=== PATIENT | female | born 1975 | race Caucasian/White ===

== ENCOUNTER 2018-10-24 16:29 | Outpatient (CLI) | payer MEDICAID ==
--- NOTE | 2018-10-24 17:09 | Non Stress Test Report ---
Non Stress Test Datetime Report Generated by CPN: 10/24/2018 17:09 DEMOGRAPHIC EGA NST: 35.3 INDICATION Indication for Study: Ordered by Provider; Other Indication for Study (NST) Other: LC MONITORING Monitor Explained: Monitor Explained; Test Explained; Patient Verbalized Understanding Time on Monitor: 10/24/2018 16:22 Time off Monitor: 10/24/2018 16:51 NST Duration: 29 NST INTERVENTIONS Physician Notified NST: C Walton CNM BABY A: [id number] BABY A Movement : Present Contraction Frequency : x1 FHR Baseline : 135 Accelerations : 15X15 Decelerations : None Variability : Moderate 6-25bpm NST Review: Meets Criteria for Reactive NST NST Review and Verified By : Anna Camp RNC NST Results: Reactive NST REPORT Report Trigger: Send Report
== END 2018-10-24 16:58 | disposition home or self-care (01) ==
LOC: LC 16:29
PROVIDERS: ATTEND Obstetrics & Gynecology
PROC: 4A1HXCZ Monitoring of Products of Conception, Cardiac Rate, External Approach (ICD-10-PCS; principal; 2018-10-24)
DX: Z34.93 Encounter for supervision of normal pregnancy, unspecified, third trimester (principal)
CPT/HCPCS: 59025

== ENCOUNTER 2018-11-17 11:25 | Outpatient (CLI) | payer MEDICAID | END 2018-11-17 12:04 | disposition home or self-care (01) | LOC: LC 11:25 | PROVIDERS: ATTEND Obstetrics & Gynecology Gynecology | DX: Z34.93 Encounter for supervision of normal pregnancy, unspecified, third trimester (principal) | CPT/HCPCS: 59025 ==

== ENCOUNTER 2018-11-18 05:09 | Inpatient (IN) | payer MEDICAID ==
[2018-11-17 11:18] LABS: APPEARANCE,URINE CLEAR; BILIRUBIN,URINE NEGATIVE (NEGATIVE); COLOR,URINE YELLOW; GLUCOSE, URINE NEGATIVE (NEGATIVE); KETONES,URINE NEGATIVE (NEGATIVE); LEUKOCYTE ESTERASE,URINE NEGATIVE (NEGATIVE); NITRITE,URINE NEGATIVE (NEGATIVE); PROTEIN,URINE NEGATIVE (NEGATIVE); URINE SPECIFIC GRAVITY 1.013; UROBILINOGEN,URINE NEGATIVE mg/dL (<2.0)
[2018-11-17 11:30] LABS: URINE AMPHETAMINES SCREEN NEGATIVE; URINE BARBITURATES SCREEN NEGATIVE; URINE BENZODIAZEPINES SCREEN NEGATIVE; URINE COCAINE SCREEN NEGATIVE; URINE MARIJUANA (THC) SCREEN NEGATIVE; URINE METHADONE SCREEN NEGATIVE; URINE PHENCYCLIDINE SCREEN NEGATIVE
[2018-11-17 11:57] LABS: ABSOLUTE EOSINOPHILS # (AUTO) 0.3 10^3/uL (0.0-0.6); ABSOLUTE LYMPHOCYTES (AUTO) 2.9 10^3/uL (0.5-4.7); ABSOLUTE MONOCYTES (AUTO) 1.1 10^3/uL (0.1-1.4); ABSOLUTE NEUT (AUTO) 7.7 10^3/uL (1.7-8.2); BASOPHILS % (AUTO) 0.3 % (0-2); EOSINOPHILS % (AUTO) 2.7 % (0-6); HEMATOCRIT 37.4 % (36.0-47.0); LYMPHOCYTES % (AUTO) 24.3 % (13-45); MEAN CORPUSCULAR HEMOGLOBIN 33.8 pg (27.0-33.4); MEAN CORPUSCULAR HGB CONC 34.7 g/dL (32.0-36.0); MEAN CORPUSCULAR VOLUME 97 fl (80-97); MONOCYTES % (AUTO) 8.8 % (3-13); PLATELET COUNT 333 10^3/uL (150-450); RED BLOOD COUNT 3.84 10^6/uL (3.72-5.28); RED CELL DISTRIBUTION WIDTH 13.2 % (11.5-14.0); SEGMENTED NEUTROPHILS % (AUTO) 63.9 % (42-78); TOTAL CELLS COUNTED % (AUTO) 100 %
[~2018-11-18 05:09] MED LIST: CEFAZOLIN SODIUM 2 GM in DEXTROSE 5%-WATER 100 ML IV PRN
[2018-11-18] MEDS ORDERED: RINGERS SOLUTION,LACTATED 1,000 ML IV ONE (06:15)
[2018-11-18] MEDS ORDERED: CEFAZOLIN 1 GM/D5W RTU 2 GM/100 ML RTUPB IV ONE (06:17)
[2018-11-18] MEDS ORDERED: OXYTOCIN 10 UNIT/ML VIAL ONE (06:23)
[2018-11-18] MEDS ORDERED: MIDAZOLAM 2 MG/2 ML INJ ONE (06:24)
[2018-11-18] MEDS ORDERED: EPHEDRINE SULFATE INJ 50 MG/1 ML AMPULE ONE (06:24)
[2018-11-18] MEDS ORDERED: FENTANYL CITRATE INJ/PF 100 MCG/2 ML AMPUL ONE (06:24)
[2018-11-18] MEDS ORDERED: PROPOFOL INJ 200 MG/20 ML VIAL IV ONE (06:24)
[2018-11-18] MEDS: LACTATED RINGERS 1000 ML IV PRN ×2 (06:42→16:31)
[2018-11-18] MEDS ORDERED: OXYTOCIN/NORMAL SALINE 20 UNIT/1,000 ML RTUINJ ONE (06:56)
[2018-11-18] MEDS ORDERED: ONDANSETRON HCL INJ/PF 4 MG/2 ML SDV ONE (07:09)
[2018-11-18] MEDS ORDERED: PROMETHAZINE HCL INJ 25 MG/1 ML VIAL IV PRN ×3 (07:14→09:15)
[2018-11-18] MEDS ORDERED: DIPHENHYDRAMINE HCL 50 MG/ML VIAL IV PRN (07:14)
[2018-11-18] MEDS ORDERED: FENTANYL CITRATE INJ/PF 100 MCG/2 ML AMPUL IV PRN ×3 (07:14)
[2018-11-18] MEDS ORDERED: ONDANSETRON HCL INJ/PF 4 MG/2 ML SDV IV PRN (07:14)
--- NOTE | 2018-11-18 09:08 | PDOC DELIVERY SUMMARY ---
Delivery Summary - Maternal Hx : VIII Hx Para: II Hx # Term Pregnancies: 2 Hx Total # of Abortions (Sponateous & Elective): 5 Number of Living Children: 2 ALDO: 11/25/18 Gestational Age: 39.0 Risk Factors: Previous Ruptured Membranes: AROM Time of Rupture: 08:16 Fluids: Clear - Delivery Labor: Not In Labor Presentation: Vertex Heart Rate Monitoring: Done Pre-Operatively Uterine Contraction Monitoring: External Support Person Present: Yes Location: OR : Scheduled Placenta: Within Normal Limits Number of Vessels (Cord): 3 Nuchal Cord: Yes Delivery of Placenta Date: 11/18/18 Delivery of Placenta Time: 08:18 Estimated Blood Loss: 800 ml - Medications Type of Anesthesia:: Spinal - Infant Assess and Care Baby 1 Male Delivery of Infant Date: 11/18/18 Delivery of Time: 08:17 at 1 minute: 8 at 5 minutes: 9 Preprinted Number On Band: [id number] Skin to Skin: No Skin to Skin (Mins): 0 To Nursery At: 08:28 Mode of Transport: Bassinet - Delivery Personnel Nursery RN: BRENDA BILLINGS [facility] RN: LESLIE PIMENTEL RN: BRUNA SHER MD: JULIÁN RECINOS
[2018-11-18] MEDS ORDERED: MORPHINE SULFATE 10 MG/ML INJ ONE (09:12)
[2018-11-18] MEDS ORDERED: MEPERIDINE HCL/PF INJ 25 MG/1 ML DISP.SYRIN ONE (09:12)
[2018-11-18] MEDS ORDERED: SIMETHICONE 80 MG TAB.CHEW PO PRN (09:15)
[2018-11-18] MEDS ORDERED: OXYTOCIN/NORMAL SALINE 20 UNIT/1,000 ML RTUINJ IV PRN (09:15)
[2018-11-18] MEDS ORDERED: ACETAMINOPHEN 1,000 MG/100 ML RTUPB IV PRN (09:15)
[2018-11-18] MEDS ORDERED: ACETAMINOPHEN 325 MG TABLET PO PRN (09:15)
[2018-11-18] MEDS ORDERED: RINGERS SOLUTION,LACTATED 1,000 ML IV PRN (09:15)
[2018-11-18] MEDS ORDERED: DIPH/PERTUSS(ACELL)/TETANUS VAC/PF 0.5 ML SYR (>=10YO) IM PRN (09:15)
[2018-11-18] MEDS ORDERED: OXYCODONE-ACETAMINOPHEN 5-325 MG TABLET PO PRN (09:15)
--- NOTE | 2018-11-18 09:15 | Operative Report ---
Operative Report DATE OF SURGERY: 11/18/18 PREOPERATIVE DIAGNOSIS: 1. Intrauterine at 39-0/7 weeks. 2. Previo us section x2. 3. GBS negative. 4. Asthma. 5. Rh-. 6. Rubella immune POSTOPERATIVE DIAGNOSIS: Same OPERATION: Repeat low transverse section SURGEON: JULIÁN FABIAN ANESTHESIA: Spinal TISSUE REMOVED OR ALTERED: Placenta COMPLICATIONS: None ESTIMATED BLOOD LOSS: 800 ml INTRAOPERATIVE FINDINGS: Male fetus with a cephalic plus nuchal cord x1 presentation at 0817; Apgars 8 at 1, 9 at 5; normal uterus, bilateral tubes and ovaries; large left ovarian cyst resolving PROCEDURE: The patient was taken to the operating room where spinal anesthesia was obtained and found to be adequate. She was then prepped and draped in the normal sterile fashion and placed in the dorsal supine position with a leftward tilt. A Pfannenstiel skin incision was then made and carried through to the underlying layers of the fascia with the scalpel. The fascia was incised in the midline and the incision extended laterally with the Tillman scissors. The superior aspect of the fascial incision was then grasped with Valeria clamps elevated and the underlying rectus muscles dissected off both bluntly and sharply. Attention was then turned to the inferior aspect of the fascial incision which in a similar fashion was grasped, tented up with Valeria clamps, and the rectus muscles dissected off both bluntly and sharply. The rectus muscles were then in the midline and the peritoneum was identified and entered both sharply and bluntly. The peritoneal incision was then extended superiorly and inferiorly with good visualization of the bladder. The bladder blade was inserted and the vesicouterine peritoneum identified grasped with Green[place]ic pickups and entered sharply with the Metzenbaum scissors. This incision was then extended laterally with the Metzenbaum scissors and a bladder flap created digitally. The bladder blade was then reinserted and the lower uterine segment incised in a transverse fashion with the scalpel. The uterine incision was then extended bluntly and with the bandage scissors. The bladder blade was removed and the infant's head was delivered from cephalic presentation atraumatically. The cord doubly clamped and cut. The was handed off to waiting city bailiff. The placenta was then delivered manually and the uterus exteriorized and cleared of all clots and debris. The uterine incision was then repaired with 0 Vicryl in a running locked fashion. 0-Chromic was used to obtain hemostasis via imbrication of the initial layer. The left ovary was inspected to see if the large ovarian cyst was still present. The ovarian cyst was deflated and no intervention was needed. The abdomen was then copiously irrigated with warm normal saline. The uterus was returned to the patient's abdomen and Interceed was placed overlying the uterine incision, as well as a piece placed vertically on the anterior surface of the uterus, to prevent adhesions. The gutters were cleared of all clots and debris. All operative sites were noted to be hemostatic. The fascia was reapproximated with 0 Vicryl in a running fashion from each lateral edge to the midline. The subcutaneous fat layer was then closed in an interrupted fashion with 3-0 vicryl. The skin was closed with 4-0 Monocryl in a running, subcuticular fashion. The patient tolerated the procedure well. Sponge, lap, needle and instrument counts are correct x 2. 2 g of Ancef were given prior to skin incision. The patient was taken to the recovery area awake and in stable condition.
[2018-11-18] MEDS: MEPERIDINE HCL/PF INJ 25 MG/1 ML DISP.SYRIN IV PRN ×2 (09:18→09:38)
[2018-11-18] MEDS: MORPHINE SULFATE 10 MG/ML INJ IV PRN ×2 (09:25→09:37)
[2018-11-18] MEDS ORDERED: ACETAMINOPHEN 1,000 MG/100 ML RTUPB IV ONE (10:12)
[2018-11-18] MEDS ORDERED: KETOROLAC TROMETHAMINE INJ/PF 30 MG/1 ML SDV ONE (10:12)
[2018-11-18] MEDS ORDERED: HYDROMORPHONE HCL INJ/PF 2 MG/ML AMPULE ONE (10:12)
[2018-11-18] MEDS: KETOROLAC TROMETHAMINE INJ/PF 30 MG/1 ML SDV IV SCH ×2 (10:18→18:16)
[2018-11-18] MEDS: HYDROMORPHONE HCL INJ/PF 2 MG/ML AMPULE IV PRN ×2 (10:24→12:50)
[2018-11-18] MEDS: DOCUSATE SODIUM 100 MG CAPSULE PO SCH ×2 (14:08→18:16)
[2018-11-18] MEDS: PRENATAL VITAMIN W DHA CAPSULE PO SCH (14:08)
[2018-11-18] MEDS: OXYCODONE-ACETAMINOPHEN 5-325 MG TABLET PO PRN ×3 (14:11→22:27)
[2018-11-19] MEDS: OXYCODONE-ACETAMINOPHEN 5-325 MG TABLET PO PRN ×5 (02:45→21:17)
[2018-11-19] MEDS: KETOROLAC TROMETHAMINE INJ/PF 30 MG/1 ML SDV IV SCH ×3 (02:46→18:23)
[2018-11-19] MEDS ORDERED: LIDOCAINE 0.5% INJ-PF (5 MG/ML) 50 ML SDV SUBCUT PRN (05:00)
[2018-11-19] MEDS ORDERED: NORMAL SALINE 1000 ML (RENAL PATIENTS) IV PRN (05:00)
[2018-11-19 07:36] LABS: MEAN CORPUSCULAR HEMOGLOBIN 33.9 pg (27.0-33.4); MEAN CORPUSCULAR HGB CONC 34.8 g/dL (32.0-36.0); MEAN CORPUSCULAR VOLUME 98 fl (80-97); PLATELET COUNT 291 10^3/uL (150-450); RED BLOOD COUNT 2.97 10^6/uL (3.72-5.28); RED CELL DISTRIBUTION WIDTH 13.2 % (11.5-14.0); WHITE BLOOD COUNT 14.6 10^3/uL (4.0-10.5)
[2018-11-19 07:37] LABS: HEMOGLOBIN 10.1 g/dL (12.0-15.5)
--- NOTE | 2018-11-19 09:57 | PDOC PROGRESS REPORT ---
Subjective-OB Progress Note for:: 11/19/18 Subjective: Doing well, holding baby, eating well, hsb at BS, discussed irritated area from dressing Physical Exam (OB) Vital Signs: Temp Pulse Resp BP Pulse Ox 97.5 F 68 18 107/64 98 11/19/18 03:58 11/19/18 03:58 11/19/18 03:58 11/19/18 03:58 11/19/18 03:58 Intake & Output 11/18/18 11/19/18 11/20/18 06:59 06:59 06:59 Intake Total 1850 Output Total 650 Balance 1200 Weight 78.47 kg - PIH/Pre-Eclampsia DTR's: 2 + Clonus: Negative Headache: Absent Epigastric Pain: No Visual Changes: No - Dressing Removed: Yes - see nurse's note Incision: Draining - Lochia Lochia Amount: Scant < 10 ml Lochia Color: Rubra/Red - Abdomen Description: Tender, Soft Hernia Present: No Fundal Description: Firm, Midline Fundal Height: u/u - u/2 Objective-Diagnostic Laboratory: 11/19/18 07:08 11/19/18 07:08 WBC 14.6 H RBC 2.97 L Hgb 10.1 L D Hct 29.0 L MCV 98 H MCH 33.9 H MCHC 34.8 RDW 13.2 Plt Count 291 Assessment and Plan(PN) - Assessment and Plan (1) Asthma Qualifiers: Asthma complication type: unspecified Is this a current diagnosis for this admission?: Yes (2) History of traumatic brain injury Is this a current diagnosis for this admission?: Yes (3) History of depression Is this a current diagnosis for this admission?: Yes (4) Smoker Is this a current diagnosis for this admission?: Yes (5) Advanced maternal age (AMA), 40 years or greater Is this a current diagnosis for this admission?: Yes (6) S/P repeat low transverse Is this a current diagnosis for this admission?: Yes - Time Spent with Patient Time with patient: Less than 15 minutes Smoking Education Provided: Over 3 minutes Medications reviewed and adjusted accordingly: Yes - Disposition Anticipated Discharge: Home Within: within 24 hours
[2018-11-19] MEDS: DOCUSATE SODIUM 100 MG CAPSULE PO SCH ×2 (10:38→18:24)
[2018-11-19] MEDS: IBUPROFEN 800 MG TABLET PO SCH ×3 (10:38→21:17)
[2018-11-19] MEDS: PRENATAL VITAMIN W DHA CAPSULE PO SCH (10:38)
[2018-11-20] MEDS: OXYCODONE-ACETAMINOPHEN 5-325 MG TABLET PO PRN ×3 (01:58→10:08)
[2018-11-20] MEDS: IBUPROFEN 800 MG TABLET PO SCH ×2 (01:59→10:09)
[2018-11-20] MEDS: KETOROLAC TROMETHAMINE INJ/PF 30 MG/1 ML SDV IV SCH ×2 (02:00→10:09)
--- NOTE | 2018-11-20 09:06 | PDOC PROGRESS REPORT ---
Subjective-OB Progress Note for:: 11/20/18 Subjective: Doing well, no c/o, ready to go home, area on abdomen from tape has improved, eating, passing gas, hsb at BS, holding baby Physical Exam (OB) Vital Signs: Temp Pulse Resp BP Pulse Ox 97.9 F 80 18 126/53 H 98 11/20/18 04:15 11/20/18 04:15 11/20/18 04:15 11/20/18 04:15 11/20/18 04:15 Intake & Output 11/19/18 11/20/18 11/21/18 06:59 06:59 06:59 Intake Total 1850 2450 Output Total 650 Balance 1200 2450 - PIH/Pre-Eclampsia DTR's: 2 + Clonus: Negative Headache: Absent Epigastric Pain: No Visual Changes: No - Dressing Removed: Yes - see nurse's note Incision: Well Approximated - Lochia Lochia Amount: Scant < 10 ml Lochia Color: Rubra/Red - Abdomen Description: Tender, Soft Hernia Present: No Fundal Description: Firm, Midline Fundal Height: u/u - u/2 Objective-Diagnostic Laboratory: 11/19/18 07:08 Assessment and Plan(PN) - Assessment and Plan (1) Asthma Qualifiers: Asthma complication type: unspecified Is this a current diagnosis for this admission?: Yes (2) History of traumatic brain injury Is this a current diagnosis for this admission?: Yes (3) History of depression Is this a current diagnosis for this admission?: Yes (4) Smoker Is this a current diagnosis for this admission?: Yes (5) Advanced maternal age (AMA), 40 years or greater Is this a current diagnosis for this admission?: Yes (6) S/P repeat low transverse Is this a current diagnosis for this admission?: Yes - Time Spent with Patient Time with patient: Less than 15 minutes Smoking Education Provided: Over 3 minutes Medications reviewed and adjusted accordingly: Yes - Disposition Anticipated Discharge: Home Within: within 24 hours
--- NOTE | 2018-11-20 09:08 | PDOC DISCHARGE SUMMARY ---
Final Diagnosis Discharge Date: 11/20/18 - Final Diagnosis (1) Asthma Is this a current diagnosis for this admission?: Yes (2) History of traumatic brain injury Is this a current diagnosis for this admission?: Yes (3) History of depression Is this a current diagnosis for this admission?: Yes (4) Smoker Is this a current diagnosis for this admission?: Yes (5) Advanced maternal age (AMA), 40 years or greater Is this a current diagnosis for this admission?: Yes (6) S/P repeat low transverse Is this a current diagnosis for this admission?: Yes Discharge Data - Discharge Medication Prescriptions: Oxycodone HCl/Acetaminophen [Percocet 5-325 mg Tablet] 1 tab PO Q4HP PRN #20 tablet PRN Reason: Ibuprofen [Motrin 800 mg Tablet] 800 mg PO Q6A #30 tablet Home Medications: Pnv W-O Ca No5/Fe Fumarate/FA [-U Multiple Vitamin Capsule] 1 cap PO DAILY 03/25/12 Ranitidine HCl [Zantac 75] 1 tab PO DAILY PRN 11/17/18 Ibuprofen [Motrin 800 mg Tablet] 800 mg PO Q6A #30 tablet 11/19/18 Oxycodone HCl/Acetaminophen [Percocet 5-325 mg Tablet] 1 tab PO Q4HP PRN #20 tablet 11/19/18 Gestational Age: 38.6 Reason(s) for Admission: Ceasarean Section-Repeat Procedures: NST, Ultrasound Intrapartum Procedure(s): : Low Cervical, Transverse - Diagnosis Test Laboratory: Temp Pulse Resp BP Pulse Ox 97.9 F 80 18 126/53 H 98 11/20/18 04:15 11/20/18 04:15 11/20/18 04:15 11/20/18 04:15 11/20/18 04:15 11/17/18 11/17/18 11/19/18 10:45 11:00 07:08 RBC 3.84 2.97 L Hgb 13.0 10.1 L D Hct 37.4 29.0 L Urine Opiates Screen NEGATIVE - Discharge information/Instructions Discharge Activity: Activity As Tolerated, Balance Activity w/Rest, No Lifting Over 10 Pounds, No Lifting/Push/Pulling, Pelvic Rest Discharge Diet: As Tolerated, Regular Disposition: HOME, SELF-CARE Follow [facility]: [facility]: 5, Days
[2018-11-20] MEDS: DOCUSATE SODIUM 100 MG CAPSULE PO SCH (10:08)
[2018-11-20] MEDS: PRENATAL VITAMIN W DHA CAPSULE PO SCH (10:09)
[2018-11-20 12:24] VITALS: BP 120/67
== END 2018-11-20 15:35 | disposition home or self-care (01) | DRG 788 ==
LOC: 2S 05:09
PROVIDERS: ADMIT Obstetrics & Gynecology; ATTEND Obstetrics & Gynecology
PROC: 10D00Z1 Extraction of Products of Conception, Low, Open Approach (ICD-10-PCS; principal; 2018-11-18 07:45)
PROC: 3E0234Z Introduction of Serum, Toxoid and Vaccine into Muscle, Percutaneous Approach (ICD-10-PCS; 2018-11-20)
DX: O34.211 Maternal care for low transverse scar from previous cesarean delivery (principal); N85.8 Other specified noninflammatory disorders of uterus; O99.52 Diseases of the respiratory system complicating childbirth; J45.909 Unspecified asthma, uncomplicated; O69.81X0 Labor and delivery complicated by cord around neck, without compression, not applicable or unspecified; O34.83 Maternal care for other abnormalities of pelvic organs, third trimester; O99.334 Smoking (tobacco) complicating childbirth; N83.202 Unspecified ovarian cyst, left side; Z3A.38 38 weeks gestation of pregnancy; Z37.0 Single live birth; Z23 Encounter for immunization
CPT/HCPCS: 1961; 36415; 59025; 80307; 81001; 85025; 85027; 86850; 86870; 86900; 86901; 86920; 86922; 90715; 94799; C1765; J0131; J0690; J1170; J1885; J2175; J2250; J2270; J2405; J2590; J2704; J3010; J3490; J7060; J7120